=== PATIENT | female | born 1930 | race Caucasian/White ===

== ENCOUNTER 2019-11-16 15:39 | Inpatient (IN) | payer MEDICARE, BC ==
[~2019-11-16] VITALS: Ht 162.6 cm; Wt 55.8 kg
[~2019-11-16 15:39] MED LIST: BIMA2.5D4 RIGHTEYE; BRIM10DR2 RIGHTEYE; BROM5DRO3 LEFTEYE; LEVO50TA MT; NETA2.5D RIGHTEYE; PRED5DRO22 LEFTEYE
[2019-11-16] MEDS ORDERED: DILTIAZEM HCL 5MG/ML 5ML VIAL IV ONE ×2 (17:30→18:15)
[2019-11-16 17:47] LABS: HEMATOCRIT. 38.1 % (36.0-48.0); HEMOGLOBIN. 12.8 g/dL (12.0-16.0); MEAN CORPUSCULAR HEMOGLOBIN 35.1 pg (28.0-32.0); MEAN CORPUSCULAR VOLUME 104.6 fL (81.0-99.0); MEAN PLATELET VOLUME 8.8 fl (7.4-10.4); PLATELET 306 x1000/uL (130-400); RED BLOOD CELL COUNT 3.64 mill/uL (4.2-5.4); RED CELL DISTRIBUTION WIDTH 16.1 % (11.6-14.6)
[2019-11-16 17:59] LABS: PROTHROMBIN TIME 10.2 sec (9.6-11.0)
[2019-11-16] MEDS ORDERED: FUROSEMIDE 20MG/2ML VIAL IVP ONE (18:15)
[2019-11-16 19:09] LABS: CHLORIDE 103 mEq/L (98-107)
[2019-11-16 19:14] LABS: PLATELET ESTIMATE NORMAL
[2019-11-16] MEDS ORDERED: DOCUSATE SODIUM 100MG CAPSULE PO PRN (19:15)
[2019-11-16] MEDS ORDERED: DILTIAZEM HCL 30MG TABLET PO PRN (19:15)
[2019-11-16] MEDS ORDERED: ONDANSETRON HCL 4MG/2ML INJ IV PRN (19:15)
[2019-11-16] MEDS ORDERED: ACETAMINOPHEN 325MG TABLET PO PRN (19:15)
[2019-11-16] MEDS ORDERED: ENOXAPARIN 40MG/0.4ML SYR SUBCUT SCH (19:15)
[2019-11-16] MEDS ORDERED: MORPHINE SULFATE 2 MG/ML CPJ (NOT FOR IM USE) IV PRN (19:15)
[2019-11-16] MEDS ORDERED: CLONIDINE 0.1MG TABLET PO PRN (19:15)
[2019-11-16] MEDS ORDERED: GUAIFENESIN 200MG/10ML SUGAR FREE UDC PO PRN (19:15)
[2019-11-16] MEDS: ENOXAPARIN 30MG/0.3ML SYR SUBCUT SCH (22:31)
[2019-11-17] VITALS (9 sets, daily range): BP systolic 119–142; BP diastolic 52–99
[2019-11-17 06:06] LABS: CLARITY URINE CLEAR (CLEAR); COLOR URINE YELLOW (YELLOW); KETONES URINE NEGATIVE (NEGATIVE); LEUKOCYTE ESTERASE URINE 1+ (NEGATIVE); NITRITE URINE NEGATIVE (NEGATIVE); OCCULT BLOOD URINE NEGATIVE (NEGATIVE); PH URINE 6.5 (4.5-8.0); PROTEIN URINE NEGATIVE (NEGATIVE); UROBILINOGEN URINE 0.2 E.U./dL (0.2-1.0)
[2019-11-17 06:16] LABS: T4 FREE 1.09 ng/dL (0.76-1.46)
[2019-11-17] MEDS ORDERED: DIGOXIN 500MCG/2ML AMP IV ONE (08:45)
[2019-11-17] MEDS: SODIUM POLYSTYRENE SULFONATE 15 G/60 ML BOT PO SCH ×2 (09:00→15:45)
[2019-11-17] MEDS ORDERED: FUROSEMIDE 40MG/4ML VIAL IV SCH (09:00)
[2019-11-17] MEDS ORDERED: DIGOXIN 500MCG/2ML AMP IV PRN (12:00)
[2019-11-17] MEDS ORDERED: LEVOTHYROXINE SODIUM 50MCG TABLET PO SCH (12:00)
[2019-11-17] MEDS ORDERED: DILTIAZEM HCL 30MG TABLET PO PRN (12:15)
[2019-11-17] MEDS: LORAZEPAM 2MG/ML CPJ IV PRN (13:28)
[2019-11-17] MEDS ORDERED: DIGOXIN 500MCG/2ML AMP IV NR (14:30)
[2019-11-17] MEDS: LEVOTHYROXINE SODIUM 50MCG TABLET PO SCH (14:49)
[2019-11-17] MEDS: DILTIAZEM HCL 30MG TABLET PO SCH ×2 (15:49→22:12)
[2019-11-17] MEDS ORDERED: IPRATROPIUM/ALBUTEROL 0.5-3(2.5)MG/3ML NEB HHN PRN (17:15)
[2019-11-17] MEDS ORDERED: DIGOXIN 125MCG TABLET PO SCH (18:00)
[2019-11-17 18:22] LABS: CLARITY URINE CLEAR (CLEAR); COLOR URINE YELLOW (YELLOW); KETONES URINE NEGATIVE (NEGATIVE); LEUKOCYTE ESTERASE URINE 2+ (NEGATIVE); NITRITE URINE NEGATIVE (NEGATIVE); OCCULT BLOOD URINE NEGATIVE (NEGATIVE); PROTEIN URINE NEGATIVE (NEGATIVE); SPECIFIC GRAVITY URINE 1.009 (1.005-1.030); UROBILINOGEN URINE 0.2 E.U./dL (0.2-1.0)
[2019-11-17] MEDS: FUROSEMIDE 40MG/4ML VIAL IV SCH (18:58)
[2019-11-17] MEDS: ENOXAPARIN 30MG/0.3ML SYR SUBCUT SCH (20:49)
[2019-11-18] VITALS (9 sets, daily range): BP systolic 110–148; BP diastolic 52–82
[2019-11-18] MEDS: LORAZEPAM 2MG/ML CPJ IV PRN (02:38)
[2019-11-18] MEDS: DILTIAZEM HCL 30MG TABLET PO SCH ×2 (06:00→14:22)
[2019-11-18] MEDS: LEVOTHYROXINE SODIUM 50MCG TABLET PO SCH (06:50)
[2019-11-18] MEDS: FUROSEMIDE 40MG/4ML VIAL IV SCH (08:19)
[2019-11-18] MEDS ORDERED: SULFAMETHOXAZOLE/TRIMETHOPRIM 800/160MG TABLET PO SCH (11:30)
[2019-11-18 13:09] LABS: BASOPHILS % 0.3 % (0.0-2.0); EOSINOPHILS % 0.1 % (0.0-5.0); HEMATOCRIT. 34.7 % (36.0-48.0); HEMOGLOBIN. 11.7 g/dL (12.0-16.0); LYMPHOCYTES % 8.8 % (20.0-50.0); MEAN CORPUSCULAR HEMOGLOBIN 34.5 pg (28.0-32.0); MEAN CORPUSCULAR VOLUME 102.2 fL (81.0-99.0); MEAN PLATELET VOLUME 8.1 fl (7.4-10.4); MONOCYTES % 7.7 % (2.0-8.0); NEUTROPHILS % 83.1 % (40.0-76.0); PLATELET 244 x1000/uL (130-400); RED CELL DISTRIBUTION WIDTH 15.3 % (11.6-14.6)
[2019-11-18] MEDS ORDERED: FUROSEMIDE 40MG TABLET PO SCH (21:00)
== END 2019-11-18 18:50 | disposition home health service (06) | DRG 308 ==
LOC: ER 15:39 → EDBEDREQ 16:51 → 3WST 18:17 → EDBEDREQ 18:21 → EDBEDREQTM 18:21 → CANRESERV 21:43 → ENRESERV 21:43 → EDBEDREQSVC 11-17 01:53 → EDBEDREQTM 11-17 01:53 → ENRESERV 11-17 04:30 → ER 11-17 09:09 → 3WST 11-17 10:35 → UNDODISIN 11-18 16:32
PROVIDERS: ADMIT Hospitalist; ATTEND Hospitalist
DX: I48.91 Unspecified atrial fibrillation (principal); J96.00 Acute respiratory failure, unspecified whether with hypoxia or hypercapnia; I50.43 Acute on chronic combined systolic (congestive) and diastolic (congestive) heart failure; E44.1 Mild protein-calorie malnutrition; I48.20 Chronic atrial fibrillation, unspecified; I42.0 Dilated cardiomyopathy; I11.0 Hypertensive heart disease with heart failure; E87.5 Hyperkalemia; F03.90 Unspecified dementia, unspecified severity, without behavioral disturbance, psychotic disturbance, mood disturbance, and anxiety; I08.1 Rheumatic disorders of both mitral and tricuspid valves; L89.152 Pressure ulcer of sacral region, stage 2; E88.09 Other disorders of plasma-protein metabolism, not elsewhere classified; E03.9 Hypothyroidism, unspecified; I25.10 Atherosclerotic heart disease of native coronary artery without angina pectoris; Z68.21 Body mass index [BMI] 21.0-21.9, adult; Z88.1 Allergy status to other antibiotic agents; Z88.0 Allergy status to penicillin; Z79.899 Other long term (current) drug therapy; D72.829 Elevated white blood cell count, unspecified; R91.8 Other nonspecific abnormal finding of lung field
CPT/HCPCS: 36415; 71045; 80048; 80053; 81003; 83735; 83880; 84439; 84443; 84484; 85025; 87077; 87186; 93005; 93306; 93970; 99291; A6261; J1160; J1650; J1940; J2060; J2270; J3490